=== PATIENT | female | born 1980 | race Caucasian/White ===

== ENCOUNTER 2016-08-11 11:21 | Emergency (ER) | payer SELFPAY ==
[2016-08-11 11:36] VITALS: TEMP 98.5; BMI 40.7
--- NOTE | 2016-08-11 12:05 | EDPRACDOC ---
- General Information Chief Complaint: Abdominal Pain Stated Complaint: HEAVY VAGINAL BLEEDING WITH ABD PAIN Time Seen by Provider: 08/11/16 11:51 Information Source: Patient Mode Of Arrival: Car Home Medications: Home Medications Levothyroxine Sodium [Synthroid] 200 mcg PO DAILY #30 tab 03/14/16 Omeprazole 20 mg PO DAILY 03/14/16 Levothyroxine Sodium [Synthroid] 200 mcg PO DAILY #30 tab 08/11/16 Tramadol HCl 50 mg PO Q6 PRN #12 tablet 08/11/16 Allergies/Adverse Reactions: Allergies Allergy/AdvReac Type Severity Reaction Status Date / Time meperidine HCl [From Demerol] Allergy Unknown Anaphylaxis Verified 08/11/16 11: 36 * hydrocodone Allergy Nausea/Vomi Verified 08/11/16 11:36 ting oxycodone Allergy Nausea/Vomi Verified 08/11/16 11:36 ting - History of Present Illness Onset: friday HPI: Patient reports vaginal bleeding since Friday - states has not had a menstrual cycle since May but did not take a test prior to Friday. Friday the test was negative. Patient reports continued vaginal bleeding and RLQ pain with increased bleeding/clots. 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 Patient reports she has had nausea/vomiting x 4 wks but nothing for the past 2 wks. Pain Location: Reports: RLQ Pain Context: Reports: Spontaneous Pain Severity: Mild Pain Quality: Reports: Cramping Last Menstrual Period: nov : No Female Abdominal History: Reports: UTI Female Associated Signs & Symptoms: Reports: Vaginal Bleeding. Denies: Dysuria , Fever, Urgency, Chills Oral Intake: Normal Urinary Output: Normal ED Past Medical History - History Reviewed Yes Nurses notes reviewed and agree except as marked - Patient Medical History GI/ History: Reports: Urinary Tract Infection, Kidney Stones, Gastroesophageal Reflux Psychological History: Reports: Depression Systemic History: Reports: Hypothyroidism Surgical History: Reports: Cholecystectomy, Other (THYROIDECTOMY). Denies: Hysterectomy - Social Medical History Smoking Status: Former smoker ETOH: None Substance Abuse: None Lives In: Home EDM Review of Systems - Review of Systems ROS Negative Except as Marked: Yes All systems reviewed and were negative except as marked Constitutional: No Symptoms Reported Eyes: No Symptoms Reported Ears: No Symptoms Reported Throat: No Symptoms Reported Nose: No Symptoms Reported Mouth: No Symptoms Reported Respiratory: No Symptoms Reported Cardiovascular: No Symptoms Reported Gastrointestinal: Pain Genitourinary: Vaginal Bleeding Neurological: No Symptoms Reported - Physical Exam Constitutional: Alert (Awake), No apparent distress Oriented to: Time, Person, Place Last recorded Vital Signs: Last Vital Signs Temp 98.5 F 08/11/16 11:32 Pulse 70 08/11/16 14:24 Resp 18 08/11/16 14:24 BP 111/75 08/11/16 14:24 Pulse Ox 97 08/11/16 14:24 Oxygen Pulse Oxygen Saturation 97 O2 Device Room Air Oxygen Flow Rate Fraction of Inspired Oxygen ( FIO2) - HEENT Head: Normal ( normocephalic) Eye Exam: Normal (PERRL, EOMI, Sclera white) Nose: No Symptoms Reported (septum midline) Neck: Normal (FROM, trachea at midline) - Respiratory/Cardiovascular Respiratory: Normal - CTA (BBS clear to auscultation without adventitious sounds ) Cardiovascular: Normal (RRR without murmur, gallop or rub) - GI Auscultation: Normal (NABS) Tenderness: Mild, RLQ - Musculoskeletal Back: Normal (Non-Tender) Extremities: Normal (Normal tone, Pulses 2+ No cyanosis or edema, FROM) - Integumentary Skin: Normal, Warm, Dry Lymphatics: Normal (no adenopathy) - Neurologic Memory Impaired: Normal Motor Function: Normal (Normal tone, Pulses 2+ No cyanosis or edema, FROM) Mood Description: Normal - Re-evaluation Re-evaluation 1 Re-evaluation Time: 16:10 Discussed results with patient, plan for followup, rest, return for symptoms. - Results 08/11/16 11:49 08/11/16 11:49 WBC 9.4 xk/uL (3.8-10.8) 08/11/16 11:49 RBC 4.92 xM/uL (4.20-5.40) 08/11/16 11:49 Hgb 14.4 g/dL (12.0-16.0) 08/11/16 11:49 Hct 41.8 % (36-47) 08/11/16 11:49 MCV 85 fL (81-99) 08/11/16 11:49 MCH 29.3 pg (27-32) 08/11/16 11:49 MCHC 34.5 g/dl (33-36) 08/11/16 11:49 RDW 15.3 % (11.5-14.5) H 08/11/16 11:49 Plt Count 240 xk/uL (130-400) 08/11/16 11:49 MPV 8.3 fL (7.4-10.4) 08/11/16 11:49 Neut % (Auto) 51.8 % (45-76) 08/11/16 11:49 Lymph % (Auto) 40.7 % (17-44) 08/11/16 11:49 [place] % (Auto) 4.3 % (3-10) 08/11/16 11:49 Eos % (Auto) 2.3 % (0-5) 08/11/16 11:49 Baso % (Auto) 0.9 % (0-2) 08/11/16 11:49 Absolute Neuts (auto) 4.79 xk/uL (1.7-8.2) 08/11/16 11:49 Absolute Lymphs (auto) 3.76 xk/uL (0.65-4.75) 08/11/16 11:49 Sodium 141 mEq/L (137-146) 08/11/16 11:49 Potassium 3.6 mEq/L (3.5-5.1) 08/11/16 11:49 Chloride 104 mEq/L (98-107) 08/11/16 11:49 Carbon Dioxide 25 mMOL/L (22-33) 08/11/16 11:49 Anion Gap 16 mEq/L (8-16) 08/11/16 11:49 BUN 17 MG/DL (7-17) 08/11/16 11:49 Creatinine 0.80 MG/DL (0.52-1.04) 08/11/16 11:49 Estimated GFR (MDRD) > 60 mL/min (>=60) 08/11/16 11:49 Glucose 92 MG/DL (70-99) 08/11/16 11:49 POC Capillary Glucose 79 MG/DL (70-99) 08/11/16 15:53 Calculated Osmolality 273 MOs/Kg (270-290) 08/11/16 11:49 Calcium 9.1 MG/DL (8.4-10.2) 08/11/16 11:49 Total Bilirubin 0.8 MG/DL (0.2-1.3) 08/11/16 11:49 AST 43 IU/L (14-36) H 08/11/16 11:49 ALT 65 IU/L (9-52) H 08/11/16 11:49 Alkaline Phosphatase 74 IU/L (38-126) 08/11/16 11:49 Total Protein 7.6 G/DL (6.3-8.2) 08/11/16 11:49 Albumin 4.5 G/DL (3.5-5.0) 08/11/16 11:49 Beta HCG, Quant < 2.4 mIU/mL (<5) 08/11/16 11:49 Urine Color Red 08/11/16 13:00 Urine Clarity Cldy 08/11/16 13:00 Urine pH 5.0 (5.0-8.0) 08/11/16 13:00 Ur Specific [place] 1.035 08/11/16 13:00 Urine Protein 2+ (NEG/TRACE) H 08/11/16 13:00 Urine Glucose (UA) Neg (NEGATIVE) 08/11/16 13:00 Urine Ketones Neg (NEGATIVE) 08/11/16 13:00 Urine Occult Blood 2+ (NEG/TRACE) H 08/11/16 13:00 Urine Nitrite Neg (NEGATIVE) 08/11/16 13:00 Urine Bilirubin Neg (NEGATIVE) 08/11/16 13:00 Urine Urobilinogen 0.2 MG/DL (0-1) 08/11/16 13:00 Ur Leukocyte Esterase Neg (NEGATIVE) 08/11/16 13:00 Urine RBC Tntc (0-5) H 08/11/16 13:00 Urine WBC 2-5 (0-5) 08/11/16 13:00 Ur Epithelial Cells Occ 08/11/16 13:00 Urine Bacteria Few (NEG/FEW) 08/11/16 13:00 Urine Test Neg (NEGATIVE) 08/11/16 13:00 Microbiology 08/11/16 12:54 Trichomonas [place] - Final Vaginal Lab Results 08/11/16 08/11/16 08/11/16 15:53 13:00 13:00 WBC RBC Hgb Hct MCV MCH MCHC RDW Plt Count MPV Neut % (Auto) Lymph % (Auto) [place] % (Auto) Eos % (Auto) Baso % (Auto) Absolute Neuts (auto) Absolute Lymphs (auto) Sodium Potassium Chloride Carbon Dioxide Anion Gap BUN Creatinine Estimated GFR (MDRD) Glucose POC Capillary Glucose 79 Calculated Osmolality Calcium Total Bilirubin AST ALT Alkaline Phosphatase Total Protein Albumin Beta HCG, Quant Urine Color Red Urine Clarity Cldy Urine pH 5.0 Ur Specific [place] 1.035 Urine Protein 2+ H Urine Glucose (UA) Neg Urine Ketones Neg Urine Occult Blood 2+ H Urine Nitrite Neg Urine Bilirubin Neg Urine Urobilinogen 0.2 Ur Leukocyte Esterase Neg Urine RBC Tntc H Urine WBC 2-5 Ur Epithelial Cells Occ Urine Bacteria Few Urine Test Neg 08/11/16 08/11/16 08/11/16 11:49 11:49 11:49 WBC 9.4 RBC 4.92 Hgb 14.4 Hct 41.8 MCV 85 MCH 29.3 MCHC 34.5 RDW 15.3 H Plt Count 240 MPV 8.3 Neut % (Auto) 51.8 Lymph % (Auto) 40.7 [place] % (Auto) 4.3 Eos % (Auto) 2.3 Baso % (Auto) 0.9 Absolute Neuts (auto) 4.79 Absolute Lymphs (auto) 3.76 Sodium 141 Potassium 3.6 Chloride 104 Carbon Dioxide 25 Anion Gap 16 BUN 17 Creatinine 0.80 Estimated GFR (MDRD) > 60 Glucose 92 POC Capillary Glucose Calculated Osmolality 273 Calcium 9.1 Total Bilirubin 0.8 AST 43 H ALT 65 H Alkaline Phosphatase 74 Total Protein 7.6 Albumin 4.5 Beta HCG, Quant < 2.4 Urine Color Urine Clarity Urine pH Ur Specific [place] Urine Protein Urine Glucose (UA) Urine Ketones Urine Occult Blood Urine Nitrite Urine Bilirubin Urine Urobilinogen Ur Leukocyte Esterase Urine RBC Urine WBC Ur Epithelial Cells Urine Bacteria Urine Test Decision Time to Discharge: 16:12 - Departure Disposition: Home Condition: Good Final Diagnosis: Abdominal pain, Dysfunctional uterine bleeding Instructions: Acute Abdominal Pain (ED), Dysfunctional Uterine Bleeding (ED) Education/Counseling Given To: Patient Education/Counseling Given Regarding: Diagnosis, Treatment, Prognosis, Follow Up Referrals: None,No Provider [Primary Care Provider] - One Week Annalisa Spring MD [Staff Physician] - One Week [facility] [Provider Group] - One Week Prescriptions: Levothyroxine Sodium [Synthroid] 200 mcg PO DAILY #30 tab Tramadol HCl 50 mg PO Q6 PRN #12 tablet PRN Reason: Pain Additional Instructions: Please followup with PCP in 1-2days. Return to ED if symptoms worsen/change or concerns arise. Keep well hydrated.
[2016-08-11] MEDS ORDERED: MORPHINE 4 MG/ML INJECTION IV ONE ×2 (12:08→14:16)
[2016-08-11] MEDS ORDERED: ONDANSETRON HCL 4 MG/2 ML VIAL IV ONE (12:08)
[2016-08-11 12:24] LABS: AUTOMATED BASOPHIL 0.9 % (0-2); AUTOMATED EOSINOPHIL 2.3 % (0-5); AUTOMATED LYMPH 40.7 % (17-44); AUTOMATED MONOCYTE 4.3 % (3-10); AUTOMATED NEUTROPHIL 51.8 % (45-76); MPV 8.3 fL (7.4-10.4)
[2016-08-11 12:37] LABS: BLOOD UREA NITROGEN 17 MG/DL (7-17); CALCIUM 9.1 MG/DL (8.4-10.2); CALCULATED OSMOLALITY 273 MOs/Kg (270-290); CHLORIDE 104 mEq/L (98-107); GLUCOSE 92 MG/DL (70-99); SODIUM LEVEL 141 mEq/L (137-146); TOTAL PROTEIN 7.6 G/DL (6.3-8.2)
[2016-08-11 14:22] LABS: LEUKOCYTES/URINE NEG (NEGATIVE); NITRITE/URINE NEG (NEGATIVE); URINE OCCULT BLOOD 2+ (NEG/TRACE)
[2016-08-11 14:23] LABS: RBC/URINE TNTC (0-5)
--- NOTE | 2016-08-11 15:20 | DIRPT ---
CLINICAL DATA: Right lower quadrant/ pelvic pain. Menorrhagia. EXAM: TRANSABDOMINAL AND TRANSVAGINAL ULTRASOUND OF PELVIS TECHNIQUE: Study was performed transabdominally to optimize pelvic field of view evaluation and transvaginally to optimize internal visceral architecture evaluation. COMPARISON: March 14, 2016 FINDINGS: Uterus Measurements: 7.0 x 3.7 x 4.8 cm. No fibroids or other mass visualized. There are several tiny cervical nabothian cysts. Endometrium Thickness: 8 mm. No focal abnormality visualized. Right ovary Measurements: 2.6 x 2.2 x 2.0 cm. Normal appearance/no adnexal mass. Left ovary Measurements: 2.0 x 2.5 x 2.2 cm. Normal appearance/no adnexal mass. Other findings No abnormal free fluid. IMPRESSION: Several tiny cervical nabothian cysts. Study otherwise unremarkable. Electronically Signed By: Jet Garcia III, M.D. On: 08/11/2016 15:17
[2016-08-11] MEDS ORDERED: Pharmacy Review for Metformin - IV Contrast Given SCH (16:00)
--- NOTE | 2016-08-11 16:08 | DIRPT ---
CLINICAL DATA: Three-day history of right lower quadrant pain with nausea and vomiting EXAM: CT ABDOMEN AND PELVIS WITH CONTRAST TECHNIQUE: Multidetector CT imaging of the abdomen and pelvis was performed using the standard protocol following bolus administration of intravenous contrast. CONTRAST: 100 mL Isovue 370 nonionic COMPARISON: March 14, 2016 FINDINGS: Lower chest: Lung bases are clear. Hepatobiliary: There is hepatic steatosis. No focal liver lesions are identified. Gallbladder is absent. There is no biliary duct dilatation. Pancreas: No pancreatic mass or inflammatory focus. Spleen: No splenic lesions are identified. Adrenals/Urinary Tract: Adrenals appear normal bilaterally. Kidneys bilaterally show no mass or hydronephrosis on either side. There is a 1 mm calculus in the medial mid left kidney. No other intrarenal calculi are identified. There is no ureteral calculus on either side. The urinary bladder is midline with wall thickness within normal limits. Stomach/Bowel: There is no bowel wall or mesenteric thickening. No bowel obstruction. No free air or portal venous air. Vascular/Lymphatic: There is no abdominal aortic aneurysm. Major mesenteric vessels appear patent. There is a circumaortic left renal vein, an anatomic variant. No adenopathy is appreciable in the abdomen or pelvis. Reproductive: Uterus is anteverted. There is a 9 x 8 mm nabothian cyst in the cervix slightly to the left of midline. No other pelvic mass. No pelvic fluid identified. Other: Appendix appears normal. There is no abscess or ascites in the abdomen or pelvis. There is a minimal ventral hernia containing only fat. Musculoskeletal: There are no blastic or lytic bone lesions. No intramuscular or abdominal wall lesion. IMPRESSION: 1 mm nonobstructing calculus left kidney. No ureteral calculi are hydronephrosis on either side. Hepatic steatosis. Gallbladder absent. No bowel obstruction. No abscess. Appendix appears normal. Minimal ventral hernia containing only fat. Electronically Signed By: Jet Garcia III, M.D. On: 08/11/2016 16:05
[2016-08-11 16:27] VITALS: BP 116/74; PULSE 68
[2016-08-11 17:06] LABS: FREE T3 2.18 pg/mL (2.77-5.27); FREE T4 0.54 ng/dL (0.78-2.19)
[2016-08-13 21:36] LABS: CHLAMY BY NUCLEIC ACID AMP Negative (Negative)
[2016-08-14 06:36] LABS: GC BY NUCLEIC ACID AMP Negative (Negative)
== END 2016-08-11 16:27 | disposition home or self-care (01) ==
LOC: ED 11:21
DX: N93.8 Other specified abnormal uterine and vaginal bleeding (principal); R10.9 Unspecified abdominal pain
CPT/HCPCS: 36415; 74177; 76830; 76856; 80053; 81001; 81025; 82962; 84439; 84443; 84481; 84702; 85025; 87086; 87210; 87491; 87591; 96374; 96375; 96376; 99284; A9698; J2270; J2405